=== PATIENT | female | born 1945 | race Caucasian/White ===

== ENCOUNTER 2020-08-07 11:16 | Day surgery (SDC) | payer OTHER ==
[2020-08-06 14:02] VITALS: BMI 24.9
[2020-08-07] MEDS ORDERED: KETOROLAC TROMETHAMINE 0.5% EYE DROP 1 DROP DROPS ONE (11:30)
[2020-08-07] MEDS ORDERED: OFLOXACIN 0.3% OPHTHALMIC SOLUTION 5 ML BOTTLE ONE (11:30)
[2020-08-07] MEDS ORDERED: TROPICAMIDE 1% OPHTH SOLN 15 ML BOTTLE ONE (11:30)
[2020-08-07] MEDS ORDERED: CYCLOPENTOLATE HCL 1% OPHTH SOLN 2 ML BOTTLE ONE (11:30)
[2020-08-07] MEDS ORDERED: PHENYLEPHRINE 2.5% OPHTH SOLN 15 ML BOTTLE ONE (11:30)
[2020-08-07 11:52] VITALS: TEMP 97.7
[2020-08-07] MEDS: KETOROLAC TROMETHAMINE 0.5% EYE DROP 1 DROP DROPS OS SCH ×5 (11:55→12:15)
[2020-08-07] MEDS: TROPICAMIDE 1% OPHTH SOLN 15 ML BOTTLE OS SCH ×5 (11:55→12:15)
[2020-08-07] MEDS: OFLOXACIN 0.3% OPHTHALMIC SOLUTION 5 ML BOTTLE OS SCH ×5 (11:55→12:15)
[2020-08-07] MEDS: CYCLOPENTOLATE HCL 1% OPHTH SOLN 2 ML BOTTLE OS SCH ×5 (11:55→12:15)
[2020-08-07] MEDS: PHENYLEPHRINE 2.5% OPHTH SOLN 15 ML BOTTLE OS SCH ×5 (11:55→12:15)
[2020-08-07] MEDS ORDERED: BETAXOLOL HCL 0.25% OPHTHALMIC 10 ML DROPSBTL ONE (12:39)
[2020-08-07] MEDS ORDERED: TETRACAINE 0.5% OPHTH SOLN 2 ML BOTTLE ONE (12:39)
[2020-08-07] MEDS ORDERED: EPI-SHUGARCAINE (EPINEPHRINE 0.025% & LIDOCAINE-PF 0.75%) 4ML ONE (12:39)
[2020-08-07] MEDS ORDERED: BACITRACIN/POLYMYXIN OPH OINT 3.5 GM TUBE ONE (12:39)
[2020-08-07] MEDS ORDERED: POVIDONE-IODINE 5% OPHTHALMIC PREP 30 ML SOLUTION ONE (12:39)
[2020-08-07] MEDS ORDERED: NEO/POLYMYX B SULF/DEXAMETH OPHTHALMIC 5ML BOTTLE ONE (12:39)
[2020-08-07] MEDS ORDERED: MIDAZOLAM HCL 2 MG/2 ML SINGLE DOSE VIAL ONE (13:02)
[2020-08-07] MEDS ORDERED: ACETAMINOPHEN 325 MG TABLET (FP) PO PRN (13:47)
[2020-08-07 14:50] VITALS: BP 105/63; PULSE 58
== END 2020-08-07 15:30 | disposition home or self-care (01) ==
LOC: FASU 11:16
PROVIDERS: ATTEND Ophthalmology
PROC: 08RK3JZ Replacement of Left Lens with Synthetic Substitute, Percutaneous Approach (ICD-10-PCS; principal; 2020-08-07 13:20)
DX: H26.9 Unspecified cataract (principal)

== ENCOUNTER 2020-09-04 10:10 | Day surgery (SDC) | payer OTHER ==
[2020-08-27 15:17] VITALS: BMI 24.9
[2020-09-04] MEDS ORDERED: KETOROLAC TROMETHAMINE 0.5% EYE DROP 1 DROP DROPS ONE (10:45)
[2020-09-04] MEDS ORDERED: OFLOXACIN 0.3% OPHTHALMIC SOLUTION 5 ML BOTTLE ONE (10:45)
[2020-09-04] MEDS ORDERED: PHENYLEPHRINE 2.5% OPHTH SOLN 15 ML BOTTLE ONE (10:45)
[2020-09-04] MEDS ORDERED: TROPICAMIDE 1% OPHTH SOLN 15 ML BOTTLE ONE (10:45)
[2020-09-04] MEDS ORDERED: CYCLOPENTOLATE HCL 1% OPHTH SOLN 2 ML BOTTLE ONE (10:45)
[2020-09-04] MEDS ORDERED: POVIDONE-IODINE 5% OPHTHALMIC PREP 30 ML SOLUTION ONE (11:36)
[2020-09-04] MEDS ORDERED: TETRACAINE 0.5% OPHTH SOLN 2 ML BOTTLE ONE (11:36)
[2020-09-04] MEDS ORDERED: EPI-SHUGARCAINE (EPINEPHRINE 0.025% & LIDOCAINE-PF 0.75%) 4ML ONE (11:36)
[2020-09-04] MEDS ORDERED: BACITRACIN/POLYMYXIN OPH OINT 3.5 GM TUBE ONE (11:36)
[2020-09-04] MEDS ORDERED: BETAXOLOL HCL 0.25% OPHTHALMIC 10 ML DROPSBTL ONE (11:36)
[2020-09-04] MEDS ORDERED: NEO/POLYMYX B SULF/DEXAMETH OPHTHALMIC 5ML BOTTLE ONE (11:36)
[2020-09-04] MEDS: PHENYLEPHRINE 2.5% OPHTH SOLN 15 ML BOTTLE OD SCH ×5 (12:00→12:20)
[2020-09-04] MEDS: KETOROLAC TROMETHAMINE 0.5% EYE DROP 1 DROP DROPS OD SCH ×5 (12:00→12:20)
[2020-09-04] MEDS: CYCLOPENTOLATE HCL 1% OPHTH SOLN 2 ML BOTTLE OD SCH ×5 (12:00→12:20)
[2020-09-04] MEDS: TROPICAMIDE 1% OPHTH SOLN 15 ML BOTTLE OD SCH ×5 (12:00→12:20)
[2020-09-04] MEDS: OFLOXACIN 0.3% OPHTHALMIC SOLUTION 5 ML BOTTLE OD SCH ×5 (12:00→12:20)
[2020-09-04] MEDS ORDERED: ACETAMINOPHEN 325 MG TABLET (FP) PO PRN (13:20)
[2020-09-04] MEDS ORDERED: MIDAZOLAM HCL 2 MG/2 ML SINGLE DOSE VIAL ONE (13:34)
[2020-09-04] MEDS ORDERED: EPINEPHrine/PF 1 MG/1 ML (1:1,000) AMPULE ONE (13:39)
[2020-09-04] MEDS ORDERED: LIDOCAINE 1% P/F 10 MG/ML VIAL ONE (13:40)
[2020-09-04 14:26] VITALS: TEMP 97.7
[2020-09-04] MEDS ORDERED: ACETAMINOPHEN 325 MG TABLET (FP) PO ONE (15:00)
[2020-09-04 15:12] VITALS: BP 127/71; PULSE 74
== END 2020-09-04 15:55 | disposition home or self-care (01) ==
LOC: FASU 10:10
PROVIDERS: ATTEND Ophthalmology
PROC: 08RJ3JZ Replacement of Right Lens with Synthetic Substitute, Percutaneous Approach (ICD-10-PCS; principal; 2020-09-04 13:46)
DX: H26.9 Unspecified cataract (principal)